=== PATIENT | female | born 2000 | race Caucasian/White ===

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

== ENCOUNTER → 2021-11-02 | Outpatient (CLI) | payer OTHER | END | disposition home or self-care (01) | LOC: LAB SHORT 15:30 → LAB 15:30 | PROVIDERS: Registered Nurse Community Health | DX: Z12.4 Encounter for screening for malignant neoplasm of cervix (principal) | CPT/HCPCS: G0123 ==